=== PATIENT | female | born 1980 | race Caucasian/White ===

== ENCOUNTER 2022-03-02 18:00 | Emergency (ER) | payer BC ==
[~2022-03-02] VITALS: Ht 152.4 cm; Wt 76.4 kg
[2022-03-02 18:10] VITALS: TEMP 98.2
[2022-03-02 19:01] LABS: STREP SCREEN POSITIVE
[2022-03-02] MEDS ORDERED: MAGIC MOUTH PO (19:12)
[2022-03-02 19:35] VITALS: BP 131/77; PULSE 78
== END 2022-03-02 19:35 | disposition home or self-care (01) ==
LOC: COL.ER 18:00
PROVIDERS: Nurse Practitioner Primary Care
DX: J03.00 Acute streptococcal tonsillitis, unspecified (principal); F17.210 Nicotine dependence, cigarettes, uncomplicated; Z20.822 Contact with and (suspected) exposure to COVID-19; Z28.310 Unvaccinated for COVID-19
CPT/HCPCS: J0561

== ENCOUNTER 2023-10-04 18:18 | Observation (INO) | payer BC ==
[~2023-10-04] VITALS: Ht 154.9 cm; Wt 83.7 kg
[~2023-10-04 18:18] MED LIST: CYMBALTA 60MG60 MG PO; DESYREL 50MG50 MG PO; DIABETA 5MG5 MG/TAB PO; FLEXERIL 1010 MG/TAB PO; LIPITOR20 MG PO; LYRICA225 MG PO; MAGIC MOUTH PO; MOBIC15 MG PO
[2023-10-04 19:19] LABS: COLLECTION METHOD CLEAN CATCH
[2023-10-04 19:23] LABS: BASO # 0.1 K/mm3 (0.0-0.2); BASO % 0.9 % (0.0-2.0); EOS # 0.1 K/mm3 (0.0-0.7); EOS % 1.5 % (0.0-4.0); GRAN # 5.6 K/mm3 (1.4-6.5); HEMATOCRIT 47.3 % (37.0-47.0); HEMOGLOBIN 15.7 g/dl (12.5-16.0); LYMPH % 24.3 % (20.0-51.0); MEAN CELL VOLUME 75 fl (80.0-100.0); MEAN CORPUSCULAR HEMOGLOBIN 25 pg (27-31); MEAN CORPUSCULAR HGB CONC 33 g/dl (33.0-37.0); MEAN PLATELET VOLUME 9.9 fl (7.4-10.4); MONO # 0.4 K/mm3 (0.1-0.6); MONO % 4.9 % (1.7-9.3); PLATELET COUNT 347 K/mm3 (130-400); RED BLOOD COUNT 6.31 M/mm3 (4.10-5.30)
[2023-10-04 19:24] LABS: URINE APPEARANCE CLEAR (CLEAR/HAZY); URINE BLOOD NEGATIVE (NEGATIVE); URINE COLOR YELLOW (YELLOW); URINE GLUCOSE 3+ (NEGATIVE); URINE KETONE NEGATIVE (NEGATIVE); URINE NITRATE NEGATIVE (NEGATIVE); URINE PROTEIN(semi-quant) NEGATIVE (NEGATIVE); URINE UROBILINOGEN 0.2 E.U/dL (0.2-1.0)
[2023-10-04 19:50] LABS: ALBUMIN 3.6 g/dL (3.5-5.0); BILIRUBIN,TOTAL 0.4 mg/dL (0.2-1.2); CALCIUM 9.6 mg/dL (8.4-10.2); CREATININE, serum 0.73 mg/dL (0.57-1.11); MAGNESIUM 1.6 mg/dL (1.6-2.6); POTASSIUM 3.8 mEq/L (3.5-4.5); TOTAL PROTEIN 7.4 g/dl (6.2-8.1)
[2023-10-04 19:58] LABS: TROPONIN-I 0.043 ng/mL (0.00-0.033)
[2023-10-04] MEDS ORDERED: LYRICA300 MG PO (21:00)
[2023-10-04] MEDS ORDERED: SEROQUEL 200MG200 MG PO (21:01)
[2023-10-04] MEDS ORDERED: Pregabalin 150 MG CAP PO SCH (21:01)
[2023-10-04] MEDS ORDERED: QUEtiapine 100 MG TAB PO SCH (21:01)
[2023-10-04] MEDS ORDERED: RYBELSUS7 MG PO (21:03)
[2023-10-04] MEDS ORDERED: Insulin Lispro (HumaLOG) SQ SCH (21:43)
[2023-10-04] MEDS ORDERED: Lidocaine 4% Topical Patch TP SCH (21:45)
[2023-10-04] MEDS ORDERED: Acetaminophen 325 MG TAB PO PRN (21:45)
[2023-10-04] MEDS ORDERED: traMADol 50 MG TAB PO PRN (21:45)
[2023-10-04] MEDS ORDERED: Glucagon 1 MG VIAL IM PRN (22:00)
[2023-10-04] MEDS ORDERED: Dextrose 50% Water 25 GM/50 ML SYRINGE IV PRN (22:00)
[2023-10-04] MEDS ORDERED: Dextrose (Glucose) 15 GM (4 x 3.75 GM) Chewable TABLET PACK PO PRN (22:00)
[2023-10-04] MEDS ORDERED: Atorvastatin 40 MG TAB PO SCH (22:15)
--- NOTE | 2023-10-04 22:15 | NUR ---
Report recievied from MORENA Mills at this time. All questions answered.
--- NOTE | 2023-10-04 22:34 | NUR ---
Patient arrived at this time with at bedside and personal belongings. Rates her pain at 4/10 at this time. States her left foot/ leg feels like it fell asleep and the tingling sensation increases when she tries to walk or move it too much. Assessment complete. IV in left hand flushes easily with no complications. Med rec completed after brought in medications. Oriented patient to room, bed, call light, phone, and bathroom. Needs met. Call light and persoanl items in reach. Bed in low position and bed alarm on.
[2023-10-04 22:41] VITALS: BP 114/75; PULSE 104; TEMP 97.9
[2023-10-04] MEDS ORDERED: PROTONIX 40MG T40 MG PO (23:35)
[2023-10-04] MEDS ORDERED: JARDIANCE25 PO (23:41)
[2023-10-04 23:47] VITALS: BP 115/80; PULSE 93; TEMP 98
[2023-10-05] VITALS (19 sets, daily range): BP systolic 91–116; BP diastolic 65–80; PULSE 89–115; TEMP 97.4–98
--- NOTE | 2023-10-05 05:40 | NUR ---
Patient resting in bed. States she has some discomfort but denies need for pain meds at this time. Denies any needs at this time. Call light and personal items in reach. Bed in low position and bed alarm on.
--- NOTE | 2023-10-05 06:51 | NUR ---
Dr. Jennings called and consulted for elevated troponins and aware of patient status.
[2023-10-05] MEDS ORDERED: Empagliflozin 25 MG TAB PO SCH (07:00)
[2023-10-05 07:18] LABS: BASO # 0.1 K/mm3 (0.0-0.2); BASO % 0.7 % (0.0-2.0); EOS # 0.2 K/mm3 (0.0-0.7); EOS % 2.6 % (0.0-4.0); GRAN # 3.7 K/mm3 (1.4-6.5); GRAN % 54.3 % (42.2-75.2); HEMATOCRIT 43.9 % (37.0-47.0); HEMOGLOBIN 14.8 g/dl (12.5-16.0); LYMPH # 2.5 K/mm3 (1.2-3.4); LYMPH % 36.6 % (20.0-51.0); MEAN CELL VOLUME 74 fl (80.0-100.0); MEAN CORPUSCULAR HEMOGLOBIN 25 pg (27-31); MEAN CORPUSCULAR HGB CONC 34 g/dl (33.0-37.0); MEAN PLATELET VOLUME 9.6 fl (7.4-10.4); MONO # 0.4 K/mm3 (0.1-0.6); MONO % 5.4 % (1.7-9.3); PLATELET COUNT 333 K/mm3 (130-400); RED BLOOD COUNT 5.95 M/mm3 (4.10-5.30); REDCELL DISTRIBUTION WIDTH-CV 14.1 % (11.5-14.5)
[2023-10-05 07:26] LABS: CALCIUM 9.4 mg/dL (8.4-10.2); CREATININE, serum 0.7 mg/dL (0.57-1.11); POTASSIUM 3.6 mEq/L (3.5-4.5)
[2023-10-05 07:37] LABS: TROPONIN-I 0.042 ng/mL (0.00-0.033)
--- NOTE | 2023-10-05 07:59 | NUR ---
Notified Tico ANG of troponin level
[2023-10-05] MEDS ORDERED: Insulin Lispro (HumaLOG) SQ SCH ×2 (08:00→17:00)
[2023-10-05] MEDS ORDERED: DULoxetine 60 MG CAP PO SCH (09:00)
[2023-10-05 09:44] LABS: CHOLESTEROL RISK RATIO 10.1
[2023-10-05] MEDS ORDERED: ALEVE 220MG220 MG PO (10:42)
--- NOTE | 2023-10-05 11:05 | NUR ---
Central [employer]ile Supply Technician met with patient to discuss discharge planning. Patient lives in [place] with her , Leonid (ph#[phone]) who is at bedside. Patient sees SAV Murray at [facility] for primary care and gets her medications at [facility] with no difficulties at this time. Patient's BCBS is derian her 's employer, [employer]. Patient does not use any DME and is independent with ADLS. Patient does not have DPOA-HC and is not interested in completing one at this time. Patient plans to return home at time of discharge. Discharge Plan: Home
--- NOTE | 2023-10-05 11:15 | NUR ---
Pt off the floor for nuc med, tele aware
--- NOTE | 2023-10-05 11:25 | NUR ---
Patient left unit to get cardiac stress test
[2023-10-05] MEDS ORDERED: Regadenoson 0.08 MG/ML 5 ML SYRINGE IV SCH (11:40)
--- NOTE | 2023-10-05 11:41 | NUR ---
D: Initial visit: Special Services Supervisor stopped by room on rounds. Pt was resting with family in the room. A: Pt has no needs right now. P: Special Services Supervisor informed pt that if she needed anything to let her nurse know. Special Services Supervisor will follow up as needed.
--- NOTE | 2023-10-05 12:00 | NUR ---
pt returned from Stress Test. Pt A&Ox4. VSS. S1S2, on tele. Clear lungs on room air. ABD is rounded, soft, non-tender wiht audible bowel sounds. Pt wondering if she could eat. Told Pt we are waiting to hear back from cardiology regarding interventions based on test results. Pt is a little unsteady when walking but denies numbness, pain, dizziness, n/v. Pt has call light in reach and bed alarm on.
--- NOTE | 2023-10-05 13:30 | NUR ---
Called Jesus Ramirez to see if we can change Pt's diet. Approved to change Pt off NPO to AHA and ADA due to not being able to do interventions today. Notified Pt of change in diet and results are pending.
--- NOTE | 2023-10-05 15:30 | NUR ---
Pt wondering if they are going home tonight. Discussed we do not have the results from this morning's tests (ECHO, Stress Test). Waiting to hear from the Supply Room Clerk. Pt and family stated that they understand and need to wait for results. No further needs at this time. Pt has call light in reach and bed alarm on.
--- NOTE | 2023-10-05 21:30 | NUR ---
Patient resting in bed. Denies an pain at this time. Needs met. Assessment complete. IV in left hand flushes easliy with no complications. Call light and personal items in reach. Bed in low position and bed alarm on.
[2023-10-06] VITALS (9 sets, daily range): BP systolic 80–123; BP diastolic 54–74; PULSE 91–113; TEMP 97.3–98.2
--- NOTE | 2023-10-06 06:00 | NUR ---
Patient resting in bed. Denies any pain at this time. Assissted patient to bathroom and back to bed. No changes over night. Call light and personal items in reach. Bed in low position and bed alarm on.
[2023-10-06 06:39] LABS: BASO # 0.1 K/mm3 (0.0-0.2); BASO % 0.7 % (0.0-2.0); EOS # 0.2 K/mm3 (0.0-0.7); EOS % 2.4 % (0.0-4.0); GRAN # 4.2 K/mm3 (1.4-6.5); GRAN % 60.2 % (42.2-75.2); HEMATOCRIT 43.7 % (37.0-47.0); HEMOGLOBIN 14.8 g/dl (12.5-16.0); LYMPH % 28.8 % (20.0-51.0); MEAN CELL VOLUME 74 fl (80.0-100.0); MEAN CORPUSCULAR HEMOGLOBIN 25 pg (27-31); MEAN CORPUSCULAR HGB CONC 34 g/dl (33.0-37.0); MEAN PLATELET VOLUME 9.9 fl (7.4-10.4); MONO # 0.5 K/mm3 (0.1-0.6); MONO % 7.3 % (1.7-9.3); PLATELET COUNT 355 K/mm3 (130-400); RED BLOOD COUNT 5.89 M/mm3 (4.10-5.30); REDCELL DISTRIBUTION WIDTH-CV 13.9 % (11.5-14.5)
[2023-10-06 06:53] LABS: CALCIUM 9.2 mg/dL (8.4-10.2); CREATININE, serum 0.66 mg/dL (0.57-1.11); POTASSIUM 3.8 mEq/L (3.5-4.5)
--- NOTE | 2023-10-06 09:25 | NUR ---
Pt off tele at this time for a shower
[2023-10-06] MEDS ORDERED: Fenofibrate 54 MG TABLET PO SCH (09:30)
--- NOTE | 2023-10-06 12:03 | NUR ---
Pt reports that she is back to her baseline as far as ambulation. She is steady on her feet, slight limp with her left leg. She is able to get in to the restroom with no issues.
--- NOTE | 2023-10-06 14:53 | NUR ---
Pt resting with eyes closed, even non labored breathing. Pt does have friend/family sleeping on couch in room. Did call Dr Steiner to see plan for patient. Awaiting results on lexiscan. Attempted to call Jesus with Dr Jennings, no answer. Will continue to try and follow up regarding this
--- NOTE | 2023-10-06 14:59 | NUR ---
Jesus made aware that we are needing lexiscan results for plan of care
[2023-10-06] MEDS ORDERED: LOFIBRA54 MG PO (15:10)
[2023-10-06] MEDS ORDERED: ASPIRIN E.C. 8181 MG PO (15:11)
[2023-10-06] MEDS ORDERED: LIPITOR 40MG TA40 MG PO (15:11)
--- NOTE | 2023-10-06 16:05 | NUR ---
Reviewed discharge instructions with pt and family. Discussed new medications and follow up appointment. Notified tele of pt discharging. INT removed from left hand and pt escorted out. Pt refused a wheelchair.
== END 2023-10-06 16:10 | disposition home or self-care (01) ==
LOC: COL.ER 18:18 → SURG 21:36
PROVIDERS: Emergency Medicine; Nurse Practitioner; Nurse Practitioner Family; ADMIT Internal Medicine
DX: M54.42 Lumbago with sciatica, left side (principal); I21.4 Non-ST elevation (NSTEMI) myocardial infarction; I10 Essential (primary) hypertension; E11.40 Type 2 diabetes mellitus with diabetic neuropathy, unspecified; E78.5 Hyperlipidemia, unspecified; M43.06 Spondylolysis, lumbar region; K21.9 Gastro-esophageal reflux disease without esophagitis; Z79.84 Long term (current) use of oral hypoglycemic drugs; Z79.899 Other long term (current) drug therapy
CPT/HCPCS: A9270; A9500-JZ; G0378; J1650; J1815; J2785